=== PATIENT | male | born 1950 | race Caucasian/White ===

== ENCOUNTER 2019-07-17 10:26 | Inpatient (IN) | payer MEDICARE ==
[2019-07-17] MEDS ORDERED: AMLO5TAB9 PO (12:04)
[2019-07-17] MEDS ORDERED: ISOS60TA4 PO (12:04)
[2019-07-17] MEDS ORDERED: LISI10TA5 PO (12:04)
[2019-07-17] MEDS ORDERED: ONDANSETRON HCL/PF 4 MG/2 ML VIAL IVP PRN (17:00)
[2019-07-17] MEDS ORDERED: MAG HYDROX/AL HYDROX/SIMETH 30 ML UDC PO PRN (17:00)
[2019-07-17] MEDS ORDERED: Z GUARD REMEDY 2 OZ OINT TP PRN (17:00)
[2019-07-17] MEDS ORDERED: ZOLPIDEM TARTRATE 5 MG TABLET PO PRN (17:00)
[2019-07-17] MEDS ORDERED: ACETAMINOPHEN 325 MG TABLET PO PRN (17:00)
[2019-07-17] MEDS ORDERED: MAGNESIUM HYDROXIDE 30 ML UDC PO PRN (17:00)
[2019-07-17] MEDS: HYDROCODONE/APAP 5/325MG 1 EACH TABLET PO PRN ×2 (18:00→22:30)
[2019-07-18] MEDS: HYDROCODONE/APAP 5/325MG 1 EACH TABLET PO PRN ×3 (07:53→22:24)
[2019-07-18] MEDS ORDERED: ISOSORBIDE MONONITRATE 60 MG TAB.SR.24H PO SCH (09:30)
[2019-07-18] MEDS: LISINOPRIL (10MG) 10 MG TABLET PO SCH (09:42)
[2019-07-18] MEDS: POTASSIUM CHLORIDE 20 MEQ TAB.PRT.SR PO SCH ×2 (09:42→11:14)
[2019-07-18] MEDS: AMLODIPINE BESYLATE 5 MG TABLET PO SCH (09:42)
[2019-07-18] MEDS: IV NS 0.9% 1,000 ML IV PRN ×2 (09:43→19:33)
[2019-07-18] MEDS ORDERED: FEE PK DOSING 1 MIN EA MC ONE (10:33)
[2019-07-18] MEDS: VANCOMYCIN 1 GM in IV D5W 250ml IV SCH ×2 (11:14→22:18)
[2019-07-18] MEDS: ZOSYN IVPB 3.375 G in IV D5W 50ml IV SCH ×2 (12:56→17:34)
[2019-07-19] MEDS: ZOSYN IVPB 3.375 G in IV D5W 50ml IV SCH ×5 (00:05→23:04)
[2019-07-19] MEDS ORDERED: ANESTHESIA TRAY IN PYXIS 1 EA TRAY MC ONE (08:29)
[2019-07-19] MEDS ORDERED: MIDAZOLAM HCL 2 MG/2ML VIAL ONE (08:43)
[2019-07-19] MEDS ORDERED: FENTANYL PF 100MCG/2ML AMPUL ONE (08:43)
[2019-07-19] MEDS ORDERED: BUPIVACAINE 0.25% 75 MG/30 ML VIAL ONE (08:53)
[2019-07-19] MEDS ORDERED: LIDOCAINE HCL/PF 1% 30 ML SDV ONE (08:53)
[2019-07-19] MEDS: ISOSORBIDE MONONITRATE (30MG) 30 MG TAB.SR.24H PO SCH (09:00)
[2019-07-19] MEDS: LISINOPRIL (10MG) 10 MG TABLET PO SCH (09:00)
[2019-07-19] MEDS: AMLODIPINE BESYLATE 5 MG TABLET PO SCH (09:00)
[2019-07-19] MEDS: POTASSIUM CL. PREMIX PERIPHER. 50 ML IV SCH ×2 (09:00→10:41)
[2019-07-19] MEDS: oxyCODONE/APAP (5/325 MG) 1 UDTAB TABLET PO PRN ×2 (10:40→23:04)
[2019-07-19] MEDS ORDERED: oxyCODONE/APAP (5/325 MG) 1 UDTAB TABLET PO PRN (11:30)
[2019-07-19] MEDS: VANCOMYCIN 1 GM in IV D5W 250ml IV SCH ×2 (15:05→22:09)
[2019-07-19] MEDS: HYDROCODONE/APAP 5/325MG 1 EACH TABLET PO PRN (17:52)
[2019-07-20] MEDS: ZOSYN IVPB 3.375 G in IV D5W 50ml IV SCH ×3 (05:40→18:13)
[2019-07-20] MEDS: oxyCODONE/APAP (5/325 MG) 1 UDTAB TABLET PO PRN ×3 (05:57→20:05)
[2019-07-20] MEDS: ISOSORBIDE MONONITRATE (30MG) 30 MG TAB.SR.24H PO SCH (10:08)
[2019-07-20] MEDS: AMLODIPINE BESYLATE 5 MG TABLET PO SCH (10:08)
[2019-07-20] MEDS: LISINOPRIL (10MG) 10 MG TABLET PO SCH (10:09)
[2019-07-20] MEDS ORDERED: POTASSIUM CHLORIDE 20 MEQ TAB.PRT.SR PO SCH (11:00)
[2019-07-20] MEDS: VANCOMYCIN 1 GM in IV D5W 250ml IV SCH ×2 (11:13→23:23)
[2019-07-20] MEDS ORDERED: IBUPROFEN 600 MG TABLET PO PRN (11:30)
[2019-07-20] MEDS: GABAPENTIN 300 MG CAPSULE PO SCH ×2 (12:27→16:47)
[2019-07-20] MEDS: HYDROCODONE/APAP 5/325MG 1 EACH TABLET PO PRN (13:28)
[2019-07-20] MEDS: LACTOBACILLUS RHAMNOSUS GG 1 EACH CAP.SPRINK PO SCH (16:47)
[2019-07-21] MEDS: ZOSYN IVPB 3.375 G in IV D5W 50ml IV SCH ×2 (00:19→05:09)
[2019-07-21] MEDS: LISINOPRIL (10MG) 10 MG TABLET PO SCH (08:19)
[2019-07-21] MEDS: GABAPENTIN 300 MG CAPSULE PO SCH (08:19)
[2019-07-21] MEDS: AMLODIPINE BESYLATE 5 MG TABLET PO SCH (08:20)
[2019-07-21] MEDS: ISOSORBIDE MONONITRATE (30MG) 30 MG TAB.SR.24H PO SCH (08:20)
[2019-07-21] MEDS: LACTOBACILLUS RHAMNOSUS GG 1 EACH CAP.SPRINK PO SCH (08:20)
[2019-07-21] MEDS ORDERED: CLIN300C11 PO (10:07)
[2019-07-21] MEDS: VANCOMYCIN 1 GM in IV D5W 250ml IV SCH (11:00)
== END 2019-07-21 11:10 | disposition home or self-care (01) | DRG 872 ==
DX: A41.9 Sepsis, unspecified organism (principal); G91.0 Communicating hydrocephalus; L02.212 Cutaneous abscess of back [any part, except buttock and flank]; I25.10 Atherosclerotic heart disease of native coronary artery without angina pectoris; Z87.891 Personal history of nicotine dependence; I10 Essential (primary) hypertension; E87.6 Hypokalemia; K21.9 Gastro-esophageal reflux disease without esophagitis; D64.9 Anemia, unspecified; F43.20 Adjustment disorder, unspecified; G89.4 Chronic pain syndrome; Z79.891 Long term (current) use of opiate analgesic; M47.26 Other spondylosis with radiculopathy, lumbar region; L72.3 Sebaceous cyst; I95.1 Orthostatic hypotension; M19.90 Unspecified osteoarthritis, unspecified site; Z91.81 History of falling

== ENCOUNTER 2021-10-27 15:19 | Emergency (ER) | payer MEDICARE ==
[~2021-10-27] VITALS: Ht 182.9 cm; Wt 104.3 kg
[~2021-10-27 15:19] MED LIST: AMLO-212 PO; CLIN300C12 PO; ISOS60TA72 PO; LISI10TA29 PO
--- NOTE | 2021-10-27 15:40 | NUR ---
PT CAME TO ER C/O BILATERAL TESTICULAR PAIN, DYSURIA, HESITATION X 1 WEEK. DENIES FLANK PAIN, BLOOD IN URINE, SWELLING. DENIES HX OF KIDNEY STONES. AAOX4, AMBULATORY, BREATHING EVEN AND UNLABORED, PT ASSISTED TO BED 2, BLANKETS GIVEN, AWAITING MD FOR EVAL.
--- NOTE | 2021-10-27 16:07 | NUR ---
FEATHEREDGER AND REDUCER MACHINE AT BEDSIDE
[2021-10-27] MEDS ORDERED: HYDROCODONE/APAP 5/325MG TABLET ONE (16:43)
[2021-10-27] MEDS ORDERED: HYDROCODONE/APAP 5/325MG TABLET PO ONE (17:00)
[2021-10-27 17:04] LABS: BASOPHILS # (AUTO) 0.1 K/uL (0.0-0.2); BASOPHILS % (AUTO) 0.6 % (0.0-2.0); EOSINOPHILS % (AUTO) 0.2 % (0.0-6.0); HEMATOCRIT 39 % (39-51); HEMOGLOBIN 12.9 g/dL (13.5-17.5); LYMPHOCYTES # (AUTO) 1.9 K/uL (0.8-4.8); LYMPHOCYTES % (AUTO) 9.9 % (20.0-44.0); MEAN CORPUSCULAR HGB CONC 33 g/dl (31.0-36.0); MEAN CORPUSCULAR VOLUME 90 fL (80-96); MONOCYTES # (AUTO) 1.3 K/uL (0.1-1.30); NEUTROPHILS # (AUTO) 15.7 K/uL (1.8-8.9); NEUTROPHILS % (AUTO) 82.3 % (43.0-81.0); PLATELET COUNT (AUTO) 406 K/uL (150-450); RED BLOOD CELL COUNT(AUTO) 4.35 MIL/uL (4.5-6.0); WHITE BLOOD COUNT (AUTO) 19.1 K/uL (4.3-11.0)
[2021-10-27 17:13] LABS: CALCIUM, SERUM 8.9 mg/dL (8.5-10.1); CREATININE 1.1 mg/dL (0.6-1.3); POTASSIUM 3.7 mmol/L (3.5-5.1)
--- NOTE | 2021-10-27 17:15 | NUR ---
PT LAYING COMFORTABLY IN BED, BLANKET GIVEN, NEEDS MET
[2021-10-27 17:24] LABS: BILIRUBIN,URINE MODERATE (NEGATIVE); COLOR,URINE AMBER (YELLOW); LEUKOCYTE ESTERASE ,URINE NEGATIVE (NEGATIVE); NITRITE, URINE POSITIVE (NEGATIVE); PH,URINE 5.5 (5.0-8.0); PROTEIN,URINE 100 mg/dl (NEGATIVE); UGLUCOSE NEGATIVE (NEGATIVE)
[2021-10-27 17:27] LABS: BILIRUBIN,DIRECT 0.3 mg/dL (0.0-0.2); BILIRUBIN,TOTAL 0.9 mg/dL (0.2-1.0); TOTAL PROTEIN, SERUM 7.5 g/dL (6.4-8.2)
[2021-10-27 17:35] LABS: BACTERIA,URINE 1+ /HPF (None Seen); HYALINE CASTS, URINE Few /LPF (None Seen); SQUAMOUS EPITHELIAL CELL,UR Few /HPF (None Seen)
[2021-10-27] MEDS ORDERED: CEPH500C2 PO (17:57)
[2021-10-27] MEDS ORDERED: HYDR-4275 PO (17:57)
[2021-10-27] MEDS ORDERED: CEFTRIAXONE 1GM BAG (ER ONLY) 50 ML IV ONE ×2 (17:59→18:00)
[2021-10-27] MEDS ORDERED: HYDR-3980 PO (18:23)
--- NOTE | 2021-10-27 18:33 | NUR ---
Patient discharged to home in stable condition. Written and verbal after care instructions given. Patient verbalizes understanding of instruction.
--- NOTE | 2021-10-27 18:33 | NUR ---
IV removed. Catheter intact and site benign. Pressure and 4x4 applied to site. No bleeding noted.
[2021-10-27 18:35] VITALS: BP 131/83
== END 2021-10-27 18:33 | disposition home or self-care (01) ==
LOC: ER 15:26
DX: N39.0 Urinary tract infection, site not specified (principal); I10 Essential (primary) hypertension; Z79.899 Other long term (current) drug therapy
CPT/HCPCS: 36415; 76770; 76870; 80048; 80076; 81001; 85025; 87086; 96365; 99284; J0696

== ENCOUNTER 2024-04-25 14:47 | Emergency (ER) | payer MEDICARE ==
[~2024-04-25] VITALS: Ht 182.9 cm; Wt 99.8 kg
[~2024-04-25 14:47] MED LIST changes: +CEPH500C2 PO; +HYDR-3980 PO; +HYDR-4275 PO
[2024-04-25] MEDS ORDERED: ACETAMINOPHEN 325 MG TABLET ONE (15:28)
[2024-04-25] MEDS: ACETAMINOPHEN 325 MG TABLET PO ONE (15:50)
[2024-04-25 17:45] VITALS: BP 147/82; TEMP 98.6; O2SAT 98
== END 2024-04-25 17:48 | disposition home or self-care (01) ==
LOC: ER 15:01
DX: R51.9 Headache, unspecified (principal); M54.2 Cervicalgia; M54.50 Low back pain, unspecified; I10 Essential (primary) hypertension; G89.29 Other chronic pain; W01.0XXA Fall on same level from slipping, tripping and stumbling without subsequent striking against object, initial encounter; Y93.89 Activity, other specified; Y92.89 Other specified places as the place of occurrence of the external cause; Y99.8 Other external cause status; Z79.899 Other long term (current) drug therapy
CPT/HCPCS: 70450-TC; 71250-TC; 72125-TC

== ENCOUNTER 2024-05-06 10:56 | Emergency (ER) | payer MEDICARE ==
[~2024-05-06] VITALS: Ht 182.9 cm; Wt 103.9 kg
[2024-05-06 11:39] VITALS: TEMP 98.4
[2024-05-06 14:02] VITALS: BP 142/97; O2SAT 98
== END 2024-05-06 14:02 | disposition home or self-care (01) ==
LOC: ER 11:01
DX: M79.651 Pain in right thigh (principal); I10 Essential (primary) hypertension; Z79.899 Other long term (current) drug therapy
CPT/HCPCS: 73552